=== PATIENT | male | born 1960 | race Hispanic/Latino ===

== ENCOUNTER 2023-07-06 02:56 | Inpatient (IN) | payer OTHER ==
[~2023-07-06] VITALS: Ht 177.8 cm; Wt 100.7 kg
[2023-07-06] MEDS ORDERED: ACETAMINOPHEN 325 MG TAB PO ONE (05:00)
[2023-07-06 05:11] LABS: APPEARANCE,URINE CLOUDY (CLEAR); BILIRUBIN,URINE NEGATIVE (NEGATIVE); COLOR,URINE YELLOW (YELLOW); GLUCOSE, URINE (UA) >=1000 mg/dL (NEGATIVE); KETONES,URINE 5 mg/dL (NEGATIVE); LEUKOCYTE ESTERASE ,URINE 500 Leu/uL (NEGATIVE); NITRATE,URINE NEGATIVE (NEGATIVE); OCCULT BLOOD,URINE SMALL (NEGATIVE); PH,URINE 6.5 (5.0-8.0); PROTEIN,URINE 50 mg/dL (NEGATIVE); UROBILINOGEN,URINE 0.2 mg/dL (0.2-1.0)
[2023-07-06 05:17] LABS: BASOPHILS # (AUTO) 0.04 K/uL (0.00-0.20); BASOPHILS % (AUTO) 0.4 % (0.0-5.0); EOSINOPHILS # (AUTO) 0.01 K/uL (0.00-0.70); EOSINOPHILS % (AUTO) 0.1 % (0.0-8.0); HEMATOCRIT 38.8 % (42-54); IMMATURE GRANULOCYTE ABSOLUTE 0.05 K/uL (0-1); LYMPHOCYTES # (AUTO) 1.5 K/uL (1.0-4.8); MEAN CORPUSCULAR HEMOGLOBIN 28.5 pg (27.0-33.0); MEAN CORPUSCULAR HGB CONC 34.3 g/dL (32.0-36.0); MEAN CORPUSCULAR VOLUME 83.3 fL (79-99); MONOCYTES # (AUTO) 1.2 K/uL (0.1-1.0); MONOCYTES % (AUTO) 11.5 % (3.0-13.0); NEUTROPHILS # (AUTO) 7.9 K/uL (1.8-7.7); NEUTROPHILS % (AUTO) 73.5 % (40.0-77.0); PLATELET COUNT (AUTO) 183 K/uL (130-400); RED BLOOD CELL COUNT(AUTO) 4.66 MIL/uL (4.50-6.20); RED CELL DISTRIBUTION WIDTH 12.9 % (11.0-15.5); WHITE BLOOD COUNT (AUTO) 10.8 K/uL (4.8-10.8)
[2023-07-06 05:22] LABS: ADD UA MICROSCOPIC YES
[2023-07-06 05:27] LABS: BACTERIA,URINE RARE /HPF (None Seen); MUCUS,URINE RARE LPF (None Seen); OTHER CASTS, URINE 5 /LPF (None Seen); UNCLASSIFIED CRYSTAL 3 /HPF (None Seen); WBC,URINE TNTC /HPF (0-1)
[2023-07-06 05:30] LABS: CREATININE 1.2 mg/dL (0.5-1.5); POTASSIUM 4.3 mmol/L (3.5-5.1)
[2023-07-06 05:35] LABS: ALBUMIN 3.5 g/dL (3.5-5.0); BILIRUBIN,TOTAL 0.5 mg/dL (0.2-1.0); TOTAL PROTEIN, SERUM 7.2 g/dL (6.0-8.3)
[2023-07-06 06:01] LABS: INFLUENZA TYPE A Negative For Type A (NEGATIVE); INFLUENZA TYPE B Negative For Type B (NEGATIVE)
[2023-07-06 06:11] LABS: RAPID GROUP A STREP negative (NEGATIVE)
[2023-07-06 06:13] LABS: SARS-CoV-2, RNA, NAAT NEGATIVE SARS CoV-2 (NEGATIVE)
[2023-07-06] MEDS ORDERED: CEFTRIAXONE 1G VIAL IVPB ONE (06:30)
[2023-07-06] MEDS ORDERED: IBUPROFEN 800 MG TAB PO ONE (06:30)
[2023-07-06] MEDS ORDERED: 0.9%NACL 1000ML 2,000 ML IV ONE (07:00)
[2023-07-06] MEDS ORDERED: 0.9%NACL 50ML IV SCH (07:40)
[2023-07-06] MEDS: ZOSYN 3.375GM +NS 50ML IVPB SCH ×3 (07:55→22:48)
[2023-07-06] MEDS: 0.9%NACL 1000ML 1,000 ML IV SCH ×2 (07:56→17:30)
[2023-07-06] MEDS: INSULIN HUMULIN R 100 UNIT/ML 3ML SQ SCH ×4 (07:58→20:50)
[2023-07-06] MEDS: FAMOTIDINE 20MG TAB PO SCH ×2 (07:59→20:49)
[2023-07-06] MEDS: ENOXAPARIN SODIUM 30 MG/0.3 ML SQ SCH (07:59)
[2023-07-06 08:17] LABS: HEMOGLOBIN A1C 9.8 % (4.0-6.0)
[2023-07-06 08:25] LABS: THYROID STIMULATING HORMONE 1.3 uIU/mL (0.36-3.74)
[2023-07-06] MEDS ORDERED: GLIP10TA9 PO (09:38)
[2023-07-06] MEDS ORDERED: ENAL-89 PO (09:38)
[2023-07-06] MEDS: ACETAMINOPHEN 500 MG TABLET PO PRN (14:06)
[2023-07-06 16:00] VITALS: BP 134/68; PULSE 92; RESP 18
[2023-07-06 16:15] VITALS: O2SAT 0
[2023-07-06] MEDS ORDERED: IBUPROFEN 600 MG TABLET PO ONE (18:30)
[2023-07-06 19:00] VITALS: BP 134/58; PULSE 84; RESP 20
[2023-07-06 20:16] VITALS: TEMP 100
[2023-07-06 20:50] VITALS: O2SAT 100
[2023-07-06 23:48] VITALS: BP 129/68; PULSE 64; RESP 20
[2023-07-07] VITALS (7 sets, daily range): BP systolic 120–156; BP diastolic 69–95; PULSE 66–79; RESP 18–20; O2SAT 98–100
[2023-07-07] MEDS: 0.9%NACL 1000ML 1,000 ML IV SCH ×2 (01:42→12:12)
[2023-07-07 05:40] LABS: BASOPHILS # (AUTO) 0.04 K/uL (0.00-0.20); BASOPHILS % (AUTO) 0.5 % (0.0-5.0); EOSINOPHILS # (AUTO) 0.09 K/uL (0.00-0.70); EOSINOPHILS % (AUTO) 1.1 % (0.0-8.0); IMMATURE GRANULOCYTE ABSOLUTE 0.03 K/uL (0-1); LYMPHOCYTES # (AUTO) 2.1 K/uL (1.0-4.8); LYMPHOCYTES % (AUTO) 24.2 % (21.0-51.0); MEAN CORPUSCULAR HEMOGLOBIN 28.7 pg (27.0-33.0); MEAN CORPUSCULAR HGB CONC 33.7 g/dL (32.0-36.0); MEAN CORPUSCULAR VOLUME 85.2 fL (79-99); MONOCYTES # (AUTO) 1.4 K/uL (0.1-1.0); MONOCYTES % (AUTO) 16.4 % (3.0-13.0); NEUTROPHILS # (AUTO) 4.9 K/uL (1.8-7.7); NEUTROPHILS % (AUTO) 57.4 % (40.0-77.0); PLATELET COUNT (AUTO) 167 K/uL (130-400); RED BLOOD CELL COUNT(AUTO) 4.46 MIL/uL (4.50-6.20); RED CELL DISTRIBUTION WIDTH 12.9 % (11.0-15.5); WHITE BLOOD COUNT (AUTO) 8.6 K/uL (4.8-10.8)
[2023-07-07 05:49] LABS: CREATININE 0.9 mg/dL (0.5-1.5); POTASSIUM 4.2 mmol/L (3.5-5.1)
[2023-07-07] MEDS: ZOSYN 3.375GM +NS 50ML IVPB SCH ×3 (06:04→22:35)
[2023-07-07] MEDS: INSULIN HUMULIN R 100 UNIT/ML 3ML SQ SCH ×4 (06:05→20:50)
[2023-07-07] MEDS: FAMOTIDINE 20MG TAB PO SCH ×2 (08:52→20:49)
[2023-07-07] MEDS: ENALAPRIL MALEATE 10 MG TABLET PO SCH (08:52)
[2023-07-07] MEDS: POLYETHYLENE GLYCOL 3350 17 GM POWD.PACK PO SCH (08:53)
[2023-07-07] MEDS: ENOXAPARIN SODIUM 30 MG/0.3 ML SQ SCH (08:53)
[2023-07-07] MEDS: TAMSULOSIN HCL 0.4 MG CAP.ER.24H PO SCH (08:53)
[2023-07-08] VITALS (7 sets, daily range): BP systolic 116–156; BP diastolic 62–83; PULSE 63–74; RESP 14–18; O2SAT 97
[2023-07-08] MEDS: 0.9%NACL 1000ML 1,000 ML IV SCH (00:10)
[2023-07-08] MEDS: INSULIN HUMULIN R 100 UNIT/ML 3ML SQ SCH ×3 (06:00→21:00)
[2023-07-08 06:01] LABS: BASOPHILS # (AUTO) 0.02 K/uL (0.00-0.20); BASOPHILS % (AUTO) 0.3 % (0.0-5.0); EOSINOPHILS % (AUTO) 1.6 % (0.0-8.0); HEMATOCRIT 36.9 % (42-54); IMMATURE GRANULOCYTE ABSOLUTE 0.02 K/uL (0-1); LYMPHOCYTES # (AUTO) 2.2 K/uL (1.0-4.8); LYMPHOCYTES % (AUTO) 34.3 % (21.0-51.0); MEAN CORPUSCULAR HEMOGLOBIN 27.9 pg (27.0-33.0); MEAN CORPUSCULAR HGB CONC 33.6 g/dL (32.0-36.0); MEAN CORPUSCULAR VOLUME 83.1 fL (79-99); MONOCYTES # (AUTO) 0.7 K/uL (0.1-1.0); MONOCYTES % (AUTO) 11.8 % (3.0-13.0); NEUTROPHILS # (AUTO) 3.2 K/uL (1.8-7.7); NEUTROPHILS % (AUTO) 51.7 % (40.0-77.0); PLATELET COUNT (AUTO) 210 K/uL (130-400); RED BLOOD CELL COUNT(AUTO) 4.44 MIL/uL (4.50-6.20); RED CELL DISTRIBUTION WIDTH 12.6 % (11.0-15.5); WHITE BLOOD COUNT (AUTO) 6.3 K/uL (4.8-10.8)
[2023-07-08] MEDS: ZOSYN 3.375GM +NS 50ML IVPB SCH ×3 (06:03→23:15)
[2023-07-08 06:16] LABS: CREATININE 0.9 mg/dL (0.5-1.5); POTASSIUM 3.9 mmol/L (3.5-5.1)
[2023-07-08] MEDS: POLYETHYLENE GLYCOL 3350 17 GM POWD.PACK PO SCH (11:02)
[2023-07-08] MEDS: ENALAPRIL MALEATE 10 MG TABLET PO SCH (11:03)
[2023-07-08] MEDS: TAMSULOSIN HCL 0.4 MG CAP.ER.24H PO SCH (11:03)
[2023-07-08] MEDS: FAMOTIDINE 20MG TAB PO SCH ×2 (11:04→21:08)
[2023-07-08] MEDS: ENOXAPARIN SODIUM 30 MG/0.3 ML SQ SCH (11:05)
[2023-07-09] VITALS (7 sets, daily range): BP systolic 128–153; BP diastolic 68–78; PULSE 60–70; RESP 18–19; O2SAT 100
[2023-07-09] MEDS: 0.9%NACL 1000ML 1,000 ML IV SCH ×2 (03:56→20:17)
[2023-07-09 05:32] LABS: BASOPHILS # (AUTO) 0.04 K/uL (0.00-0.20); BASOPHILS % (AUTO) 0.7 % (0.0-5.0); EOSINOPHILS # (AUTO) 0.14 K/uL (0.00-0.70); EOSINOPHILS % (AUTO) 2.4 % (0.0-8.0); HEMATOCRIT 37.5 % (42-54); IMMATURE GRANULOCYTE ABSOLUTE 0.01 K/uL (0-1); LYMPHOCYTES # (AUTO) 2.1 K/uL (1.0-4.8); LYMPHOCYTES % (AUTO) 36.3 % (21.0-51.0); MEAN CORPUSCULAR HEMOGLOBIN 28.3 pg (27.0-33.0); MEAN CORPUSCULAR HGB CONC 33.9 g/dL (32.0-36.0); MEAN CORPUSCULAR VOLUME 83.7 fL (79-99); MONOCYTES # (AUTO) 0.7 K/uL (0.1-1.0); NEUTROPHILS # (AUTO) 2.8 K/uL (1.8-7.7); NEUTROPHILS % (AUTO) 48.4 % (40.0-77.0); PLATELET COUNT (AUTO) 232 K/uL (130-400); RED BLOOD CELL COUNT(AUTO) 4.48 MIL/uL (4.50-6.20); RED CELL DISTRIBUTION WIDTH 12.6 % (11.0-15.5); WHITE BLOOD COUNT (AUTO) 5.8 K/uL (4.8-10.8)
[2023-07-09 05:39] LABS: MAGNESIUM 2.1 mg/dL (1.80-2.40); POTASSIUM 4.5 mmol/L (3.5-5.1)
[2023-07-09] MEDS: INSULIN HUMULIN R 100 UNIT/ML 3ML SQ SCH ×4 (05:58→20:25)
[2023-07-09] MEDS: ZOSYN 3.375GM +NS 50ML IVPB SCH ×3 (06:08→22:47)
[2023-07-09] MEDS: TAMSULOSIN HCL 0.4 MG CAP.ER.24H PO SCH (10:38)
[2023-07-09] MEDS: POLYETHYLENE GLYCOL 3350 17 GM POWD.PACK PO SCH (10:38)
[2023-07-09] MEDS: ENALAPRIL MALEATE 10 MG TABLET PO SCH (10:38)
[2023-07-09] MEDS: FAMOTIDINE 20MG TAB PO SCH ×2 (10:38→20:12)
[2023-07-09] MEDS: ENOXAPARIN SODIUM 30 MG/0.3 ML SQ SCH (10:39)
[2023-07-10 05:09] LABS: BASOPHILS # (AUTO) 0.04 K/uL (0.00-0.20); BASOPHILS % (AUTO) 0.6 % (0.0-5.0); EOSINOPHILS % (AUTO) 3.2 % (0.0-8.0); HEMATOCRIT 36.6 % (42-54); IMMATURE GRANULOCYTE ABSOLUTE 0.03 K/uL (0-1); LYMPHOCYTES # (AUTO) 2.2 K/uL (1.0-4.8); LYMPHOCYTES % (AUTO) 35.4 % (21.0-51.0); MEAN CORPUSCULAR HEMOGLOBIN 27.9 pg (27.0-33.0); MEAN CORPUSCULAR HGB CONC 33.3 g/dL (32.0-36.0); MEAN CORPUSCULAR VOLUME 83.6 fL (79-99); MONOCYTES # (AUTO) 0.6 K/uL (0.1-1.0); MONOCYTES % (AUTO) 9.8 % (3.0-13.0); NEUTROPHILS # (AUTO) 3.2 K/uL (1.8-7.7); NEUTROPHILS % (AUTO) 50.5 % (40.0-77.0); PLATELET COUNT (AUTO) 243 K/uL (130-400); RED BLOOD CELL COUNT(AUTO) 4.38 MIL/uL (4.50-6.20); RED CELL DISTRIBUTION WIDTH 12.4 % (11.0-15.5); WHITE BLOOD COUNT (AUTO) 6.3 K/uL (4.8-10.8)
[2023-07-10 05:48] VITALS: BP 126/72; PULSE 69; RESP 18
[2023-07-10] MEDS: INSULIN HUMULIN R 100 UNIT/ML 3ML SQ SCH ×2 (06:05→11:30)
[2023-07-10] MEDS: ZOSYN 3.375GM +NS 50ML IVPB SCH (06:50)
[2023-07-10 08:00] VITALS: BP 129/74; PULSE 58; RESP 18; O2SAT 98
[2023-07-10] MEDS: 0.9%NACL 1000ML 1,000 ML IV SCH (09:44)
[2023-07-10] MEDS: ENALAPRIL MALEATE 10 MG TABLET PO SCH (09:44)
[2023-07-10] MEDS: TAMSULOSIN HCL 0.4 MG CAP.ER.24H PO SCH (09:44)
[2023-07-10] MEDS: FAMOTIDINE 20MG TAB PO SCH (09:44)
[2023-07-10] MEDS: POLYETHYLENE GLYCOL 3350 17 GM POWD.PACK PO SCH (09:45)
[2023-07-10] MEDS: ENOXAPARIN SODIUM 30 MG/0.3 ML SQ SCH (09:45)
[2023-07-10] MEDS: ACETAMINOPHEN 500 MG TABLET PO PRN (09:56)
[2023-07-10 12:00] VITALS: BP 142/83; PULSE 63; RESP 16
[2023-07-10] MEDS ORDERED: TAMS-1 PO (14:06)
== END 2023-07-10 16:10 | disposition home or self-care (01) | DRG 872 ==
LOC: EDH 02:56 → EDHIP 02:57 → 3AH 13:08
PROVIDERS: ADMIT Internal Medicine; ATTEND Internal Medicine
DX: A41.50 Gram-negative sepsis, unspecified (principal); E87.1 Hypo-osmolality and hyponatremia; N39.0 Urinary tract infection, site not specified; Z20.822 Contact with and (suspected) exposure to COVID-19; E11.65 Type 2 diabetes mellitus with hyperglycemia; N40.0 Benign prostatic hyperplasia without lower urinary tract symptoms; B96.20 Unspecified Escherichia coli [E. coli] as the cause of diseases classified elsewhere; E03.9 Hypothyroidism, unspecified; E66.9 Obesity, unspecified; I10 Essential (primary) hypertension; Z79.4 Long term (current) use of insulin; Z82.49 Family history of ischemic heart disease and other diseases of the circulatory system; Z83.3 Family history of diabetes mellitus; Z87.440 Personal history of urinary (tract) infections; Z68.31 Body mass index [BMI] 31.0-31.9, adult
CPT/HCPCS: 36415; 71045; 74176; 80048; 80053; 81001; 82306; 82948; 83036; 83605; 83735; 84145; 84443; 85025; 86140; 87040; 87077; 87088; 87186; 87635; 87804; 87880; 93005; 99291; C9803; G0378; J0696; J1650; J1815; J2543